=== PATIENT | male | born 1995 | race Caucasian/White ===

== ENCOUNTER 2016-06-06 12:46 | Emergency (ER) | payer OTHER, BC | END 2016-06-06 12:59 | disposition home or self-care (01) | LOC: ER 12:46 | DX: M54.2 Cervicalgia (principal); R07.81 Pleurodynia; F17.200 Nicotine dependence, unspecified, uncomplicated; V49.9XXA Car occupant (driver) (passenger) injured in unspecified traffic accident, initial encounter | CPT/HCPCS: 71101; 72040; 99284 ==